=== PATIENT | female | born 1995 | race Hispanic/Latino ===

== ENCOUNTER 2019-07-24 23:49 | Emergency (ER) | payer OTHER ==
[2019-07-25 00:40] LABS: APPEARANCE,URINE Clear (CLEAR); BILIRUBIN,URINE Negative (NEGATIVE); COLOR,URINE Yellow (YELLOW); GLUCOSE, URINE (UA) Negative (NEGATIVE); KETONES,URINE Negative (NEGATIVE); LEUKOCYTE ESTERASE ,URINE Small (NEGATIVE); NITRATE,URINE Negative (NEGATIVE); OCCULT BLOOD,URINE Negative (NEGATIVE); PROTEIN,URINE Negative (NEGATIVE)
[2019-07-25 00:46] LABS: BASOPHILS % (AUTO) 0.2 % (0.0-5.0); EOSINOPHILS % (AUTO) 1.7 % (0.0-8.0); HEMATOCRIT 36.5 % (36-48); LYMPHOCYTES % (AUTO) 24.3 % (21.0-51.0); MEAN CORPUSCULAR HEMOGLOBIN 32.6 pg (27.0-33.0); MEAN CORPUSCULAR HGB CONC 35.8 g/dL (32.0-36.0); MEAN CORPUSCULAR VOLUME 91.2 fL (79-99); MONOCYTES % (AUTO) 9.8 % (3.0-13.0); PLATELET COUNT (AUTO) 260 K/uL (130-400); RED BLOOD CELL COUNT(AUTO) 4.01 MIL/uL (4.00-5.50); RED CELL DISTRIBUTION WIDTH 12.7 % (11.0-15.5); WHITE BLOOD COUNT (AUTO) 8.6 K/uL (4.8-10.8)
[2019-07-25 00:53] LABS: CREATININE 0.5 mg/dL (0.5-1.5); POTASSIUM 3.4 mmol/L (3.5-5.1)
[2019-07-25 00:55] LABS: BACTERIA,URINE Few /HPF (None Seen); MUCUS,URINE Moderate LPF (None Seen); RBC,URINE None Seen /HPF (0-1); SQUAMOUS EPITHELIAL CELL,UR Many /HPF (0-2)
== END 2019-07-25 02:11 | disposition home or self-care (01) ==
LOC: EDH 23:49
DX: O20.0 Threatened abortion (principal); O23.41 Unspecified infection of urinary tract in pregnancy, first trimester; Z3A.01 Less than 8 weeks gestation of pregnancy; Z90.49 Acquired absence of other specified parts of digestive tract
CPT/HCPCS: 36415; 76801; 80048; 81001; 84702; 85025; 86900; 86901; 87088

== ENCOUNTER 2022-12-02 13:25 | Emergency (ER) | payer MEDICAID ==
[~2022-12-02] VITALS: Ht 162.6 cm; Wt 97.5 kg
[2022-12-02 14:50] VITALS: BP 149/70
[2022-12-02] MEDS ORDERED: TETANUS/DIPHTHERIA TOXOID [ADULT] 0.5 ML VIAL IM ONE (15:00)
[2022-12-02] MEDS ORDERED: KETOROLAC 60 MG VIAL (30MG/ML) IM ONE (15:00)
[2022-12-02] MEDS ORDERED: IBUP-2070 PO (15:40)
== END 2022-12-02 15:52 | disposition home or self-care (01) ==
LOC: EDH 13:25
DX: S96.912A Strain of unspecified muscle and tendon at ankle and foot level, left foot, initial encounter (principal); Z90.49 Acquired absence of other specified parts of digestive tract
CPT/HCPCS: 99284; 90714; 73610; 73620; 96372; 90471; J1885

== ENCOUNTER 2023-03-04 09:40 | Emergency (ER) | payer MEDICAID ==
[~2023-03-04] VITALS: Ht 162.6 cm; Wt 81.6 kg
[~2023-03-04 09:40] MED LIST: IBUP-2070 PO
[2023-03-04] MEDS ORDERED: LIDOCAINE 5% TOPICAL PATCH TP ONE (10:00)
[2023-03-04] MEDS ORDERED: KETOROLAC 60 MG VIAL (30MG/ML) IM ONE (10:00)
[2023-03-04] MEDS ORDERED: HYDROCODONE/ACETAMINOPHEN 5/325 MG TAB PO ONE (10:00)
[2023-03-04 10:23] LABS: BASOPHILS % (AUTO) 0.4 % (0.0-5.0); EOSINOPHILS % (AUTO) 2.5 % (0.0-8.0); HEMATOCRIT 50.8 % (36-48); LYMPHOCYTES % (AUTO) 25.1 % (21.0-51.0); MEAN CORPUSCULAR HEMOGLOBIN 30.4 pg (27.0-33.0); MEAN CORPUSCULAR HGB CONC 32.5 g/dL (32.0-36.0); MEAN CORPUSCULAR VOLUME 93.6 fL (79-99); NEUTROPHILS % (AUTO) 64.6 % (40.0-77.0); PLATELET COUNT (AUTO) 288 K/uL (130-400); RED BLOOD CELL COUNT(AUTO) 5.43 MIL/uL (4.00-5.50); RED CELL DISTRIBUTION WIDTH 13.1 % (11.0-15.5); WHITE BLOOD COUNT (AUTO) 7.1 K/uL (4.8-10.8)
[2023-03-04 10:31] LABS: CREATININE 0.7 mg/dL (0.5-1.5)
[2023-03-04 10:36] LABS: ALBUMIN 3.9 g/dL (3.5-5.0); TOTAL PROTEIN, SERUM 7.5 g/dL (6.0-8.3)
[2023-03-04 11:31] LABS: APPEARANCE,URINE CLEAR (CLEAR); BILIRUBIN,URINE NEGATIVE (NEGATIVE); COLOR,URINE COLORLESS (YELLOW); GLUCOSE, URINE (UA) NEGATIVE (NEGATIVE); KETONES,URINE NEGATIVE (NEGATIVE); LEUKOCYTE ESTERASE ,URINE 250 Leu/uL (NEGATIVE); NITRATE,URINE NEGATIVE (NEGATIVE); OCCULT BLOOD,URINE NEGATIVE (NEGATIVE); PROTEIN,URINE NEGATIVE (NEGATIVE); UROBILINOGEN,URINE 0.2 mg/dL (0.2-1.0)
[2023-03-04 11:32] LABS: HCG,QUALITATIVE URINE NEGATIVE (NEGATIVE)
[2023-03-04 11:50] LABS: BACTERIA,URINE RARE /HPF (None Seen); MUCUS,URINE RARE LPF (None Seen); SQUAMOUS EPITHELIAL CELL,UR FEW /HPF (0-2); TRANSITIONAL EPI CELLS,URINE RARE /HPF (None Seen)
[2023-03-04 12:10] VITALS: BP 124/80
[2023-03-04] MEDS ORDERED: IBUP-2070 PO (12:16)
[2023-03-04] MEDS ORDERED: CYCL-309 PO (12:16)
[2023-03-04] MEDS ORDERED: NITROFURANTOIN MONOHYD/M-CRYST 100 MG CAPSULE PO ONE (12:30)
[2023-03-04] MEDS ORDERED: CYCLOBENZAPRINE HCL 10 MG TABLET PO ONE (12:30)
== END 2023-03-04 12:30 | disposition home or self-care (01) ==
LOC: EDH 09:40
DX: S39.012A Strain of muscle, fascia and tendon of lower back, initial encounter (principal); M54.9 Dorsalgia, unspecified; Z90.49 Acquired absence of other specified parts of digestive tract; X58.XXXA Exposure to other specified factors, initial encounter; Y93.89 Activity, other specified; Y92.89 Other specified places as the place of occurrence of the external cause; Y99.8 Other external cause status
CPT/HCPCS: 99284; 80053; 84703; 85025; 87088; 81001; 81025; 36415; 96372; J1885

== ENCOUNTER 2024-03-20 11:34 | Emergency (ER) | payer MEDICAID, OTHER ==
[~2024-03-20] VITALS: Ht 162.6 cm; Wt 85.7 kg
[~2024-03-20 11:34] MED LIST changes: +CYCL-309 PO
[2024-03-20] MEDS: ONDANSETRON 4MG INJ IVP ONE (12:16)
[2024-03-20] MEDS: LACTATED RINGERS 1000ML IV STA (12:16)
[2024-03-20] MEDS: ONDANSETRON 4MG INJ ONE (12:17)
[2024-03-20 12:23] LABS: BASOPHILS # (AUTO) 0.04 K/uL (0.00-0.20); BASOPHILS % (AUTO) 0.3 % (0.0-5.0); EOSINOPHILS # (AUTO) 0.26 K/uL (0.00-0.70); EOSINOPHILS % (AUTO) 1.9 % (0.0-8.0); HEMATOCRIT 40.6 % (36-48); IMMATURE GRANULOCYTE ABSOLUTE 0.04 K/uL (0-1); LYMPHOCYTES # (AUTO) 1.9 K/uL (1.0-4.8); LYMPHOCYTES % (AUTO) 13.6 % (21.0-51.0); MEAN CORPUSCULAR HEMOGLOBIN 32.7 pg (27.0-33.0); MEAN CORPUSCULAR HGB CONC 35.5 g/dL (32.0-36.0); MEAN CORPUSCULAR VOLUME 92.1 fL (79-99); MONOCYTES # (AUTO) 1.1 K/uL (0.1-1.0); MONOCYTES % (AUTO) 7.8 % (3.0-13.0); NEUTROPHILS # (AUTO) 10.4 K/uL (1.8-7.7); NEUTROPHILS % (AUTO) 76.1 % (40.0-77.0); PLATELET COUNT (AUTO) 290 K/uL (130-400); RED BLOOD CELL COUNT(AUTO) 4.41 MIL/uL (4.00-5.50); RED CELL DISTRIBUTION WIDTH 12.6 % (11.0-15.5); WHITE BLOOD COUNT (AUTO) 13.7 K/uL (4.8-10.8)
[2024-03-20 12:31] LABS: CREATININE 0.8 mg/dL (0.5-1.0); POTASSIUM 3.5 mmol/L (3.5-5.1)
[2024-03-20 12:36] LABS: ALBUMIN 3.5 g/dL (3.5-5.0); BILIRUBIN,TOTAL 1.3 mg/dL (0.2-1.0); TOTAL PROTEIN, SERUM 7.6 g/dL (6.0-8.3)
[2024-03-20 13:17] LABS: APPEARANCE,URINE TURBID (CLEAR); BILIRUBIN,URINE NEGATIVE (NEGATIVE); COLOR,URINE LIGHT-ORANGE (YELLOW); GLUCOSE, URINE (UA) NEGATIVE (NEGATIVE); KETONES,URINE NEGATIVE (NEGATIVE); LEUKOCYTE ESTERASE ,URINE 500 Leu/uL (NEGATIVE); NITRATE,URINE NEGATIVE (NEGATIVE); PROTEIN,URINE 50 mg/dL (NEGATIVE); UROBILINOGEN,URINE 3 mg/dL (0.2-1.0)
[2024-03-20 13:19] LABS: ADD UA MICROSCOPIC YES
[2024-03-20 13:25] LABS: MUCUS,URINE FEW LPF (None Seen); SQUAMOUS EPITHELIAL CELL,UR MANY /HPF (0-2); WBC,URINE 51-100 /HPF (0-1)
[2024-03-20] MEDS: MORPHINE 4 MG SYG IVP STA (13:38)
[2024-03-20] MEDS: CEFTRIAXONE 1G VIAL IVPB STA (14:21)
[2024-03-20] MEDS ORDERED: CEPH500B PO (14:42)
[2024-03-20 14:47] VITALS: BP 125/58; PULSE 71; RESP 20; O2SAT 98
== END 2024-03-20 15:14 | disposition home or self-care (01) ==
LOC: EDH 11:34
DX: O23.41 Unspecified infection of urinary tract in pregnancy, first trimester (principal); N39.0 Urinary tract infection, site not specified; R10.2 Pelvic and perineal pain; Z79.899 Other long term (current) drug therapy; Z90.49 Acquired absence of other specified parts of digestive tract; Z3A.01 Less than 8 weeks gestation of pregnancy
CPT/HCPCS: 99285; 96365; 76705; 76801; 96375; 96361; 80053; 84703; 84702; 83690; 85025; 87086; 81001; 36415; 93005; J7120; J0696; J2405; J2270; J7030

== ENCOUNTER 2024-11-18 09:53 | Emergency (ER) | payer MEDICAID ==
[~2024-11-18] VITALS: Ht 162.6 cm; Wt 83.9 kg
[~2024-11-18 09:53] MED LIST changes: +CEPH500B PO
[2024-11-18 10:16] LABS: BASOPHILS # (AUTO) 0.03 K/uL (0.00-0.20); BASOPHILS % (AUTO) 0.2 % (0.0-5.0); EOSINOPHILS # (AUTO) 0.14 K/uL (0.00-0.70); EOSINOPHILS % (AUTO) 1.1 % (0.0-8.0); HEMATOCRIT 42.8 % (36-48); IMMATURE GRANULOCYTE ABSOLUTE 0.04 K/uL (0-1); LYMPHOCYTES # (AUTO) 1.5 K/uL (1.0-4.8); LYMPHOCYTES % (AUTO) 12.2 % (21.0-51.0); MEAN CORPUSCULAR HEMOGLOBIN 31.6 pg (27.0-33.0); MEAN CORPUSCULAR HGB CONC 33.6 g/dL (32.0-36.0); MEAN CORPUSCULAR VOLUME 94.1 fL (79-99); MONOCYTES # (AUTO) 0.7 K/uL (0.1-1.0); MONOCYTES % (AUTO) 5.3 % (3.0-13.0); NEUTROPHILS % (AUTO) 80.9 % (40.0-77.0); PLATELET COUNT (AUTO) 307 K/uL (130-400); RED BLOOD CELL COUNT(AUTO) 4.55 MIL/uL (4.00-5.50); WHITE BLOOD COUNT (AUTO) 12.3 K/uL (4.8-10.8)
[2024-11-18 10:25] LABS: APPEARANCE,URINE CLOUDY (CLEAR); BILIRUBIN,URINE NEGATIVE (NEGATIVE); COLOR,URINE YELLOW (YELLOW); GLUCOSE, URINE (UA) NEGATIVE (NEGATIVE); KETONES,URINE 20 mg/dL (NEGATIVE); LEUKOCYTE ESTERASE ,URINE 500 Leu/uL (NEGATIVE); NITRATE,URINE NEGATIVE (NEGATIVE); OCCULT BLOOD,URINE NEGATIVE (NEGATIVE); PROTEIN,URINE 20 mg/dL (NEGATIVE); UROBILINOGEN,URINE 0.2 mg/dL (0.2-1.0)
[2024-11-18 10:27] LABS: HCG,QUALITATIVE URINE POSITIVE (NEGATIVE)
[2024-11-18 10:29] LABS: CREATININE 0.6 mg/dL (0.5-1.0); POTASSIUM 3.7 mmol/L (3.5-5.1)
[2024-11-18] MEDS: ondanSETRON 4MG INJ IVP ONE ×2 (10:31→14:02)
[2024-11-18] MEDS: FAMOTIDINE 20MG VIAL IV ONE (10:31)
[2024-11-18] MEDS: 0.9%NACL 1000ML 1,000 ML IV ONE (10:31)
[2024-11-18 10:32] LABS: ALBUMIN 4.2 g/dL (3.5-5.0); BILIRUBIN,DIRECT 0.1 mg/dL (0.0-0.3); BILIRUBIN,TOTAL 0.5 mg/dL (0.2-1.0); TOTAL PROTEIN, SERUM 7.7 g/dL (6.0-8.3)
[2024-11-18 10:38] LABS: ADD UA MICROSCOPIC YES
[2024-11-18 10:41] LABS: BACTERIA,URINE MOD /HPF (None Seen); MUCUS,URINE RARE LPF (None Seen); SQUAMOUS EPITHELIAL CELL,UR MANY /HPF (0-2)
--- NOTE | 2024-11-18 10:42 | ERN ---
General Chief Complaint: Abdominal Pain Stated Complaint: ABDOMINAL PAIN Time Seen by MD: 10:07 Time Seen by Midlevel: 10:07 Source: patient History of Present Illness Initial Comments Patient is a 29-year-old female with a past medical history of chronic alcohol abuse presenting to the emergency department with right upper quadrant/midepigastric abdominal pain that radiates to her back. The pain started three days ago but has progressively worsened. The patient reports being a chronic alcohol user and normally drinks every other day. She states her usual intake is liquor and beer. Today she reports multiple episodes of nausea and vomiting prior to arrival. Denies any fever, chills, or any other symptoms. Denies being but states she is unsure. Timing/Duration: unsure Allergies: Coded Allergies: No Known Drug Allergies (Verified Allergy, Unknown, 02/08/14) Home Meds Active Scripts Ondansetron (Ondansetron Odt) 4 Mg Tab.rapdis, 4 MG PO BID for 7 Days, #14 TAB Prov:ORTIZ OG 11/18/24 Cephalexin Monohydrate (Keflex) 500 Mg Cap, 500 MG PO QID for 7 Days, #28 CAP Prov:ORTIZ OG 11/18/24 Cephalexin Monohydrate (Keflex) 500 Mg Cap, 500 MG PO QID for 7 Days, #28 CAP Prov:LANCE DUNN NP 03/20/24 Cyclobenzaprine HCl (Cyclobenzaprine HCl) 10 Mg Tablet, 10 MG PO TID for BACK PAIN, #15 TAB Prov:SOLITARIO LONDON MD 03/04/23 Ibuprofen (Ibuprofen) 600 Mg Tablet, 600 MG PO Q6H PRN for PAIN, #30 TAB Prov:SOLITARIO LONDON MD 03/04/23 Ibuprofen (Ibuprofen) 600 Mg Tablet, 600 MG PO Q6H PRN for PAIN, #30 TAB 0 Refills Prov:FILIBERTO WEINBERG MD 12/02/22 Past Medical History Past Medical History: Other Medical History Other: HEART MURMUR Past Surgical History: Appendectomy Female( History) LMP: Nov 06, 2024 ROS Dictation CONSTITUTIONAL: Negative except for HPI HEAD/FACE: Negative except for HPI EENT: Negative except for HPI RESPIRATORY: Negative except for HPI GASTROINTESTINAL/ABDOMINAL: Negative except for HPI GENITOURINARY: Negative except for HPI MUSCULOSKELETAL: Negative except for HPI INTEGUMENTARY: Negative except for HPI NEUROLOGICAL/PSYCH: Negative except for HPI HEMATOLOGIC/LYMPHATIC: Negative except for HPI All Systems Negative, Except as noted above. 13 point review of systems assessed and all negative except for above. Physical Exam Physical Exam Dictation Vital Signs reviewed General Appearance: Alert, oriented x 3, no acute distress, well developed, nourished. Head and Face: non-traumatic. Eyes: PERRL, pink conjunctivas, eyelid no trauma, anterior chamber with arcus senilis. Ears: Pinnas intact and no signs of trauma or erythema ear canals clear and no discharge TM no erythema Nose: No discharge, no bleeding. Oropharynx: Mouth normal, tongue pink, pharynx clear,no erythema, tonsils no exudates, no abscesses noted, mucous membrane moist Neck: Supple, non-tender, no thyromegaly, no masses, no JVD, no bruits Breast:Deferred Chest:No tenderness, no crepitus, no paradoxical movement, no retractions Lungs:Clear, well-ventilated, symmetric, no rales, no wheezing, no rhonchi, no stridor, good breath sounds bilaterally Heart: Regular rate, regular rhythm, no murmur, no gallops Vascular: no peripheral edema, Abdomen: Soft, positive bowel sounds, nondistended, no guarding, Right upper quadrant/midepigastric abdominal tenderness, no rebound, no masses no hepatomegaly, no splenomegaly, no Alas's sign, no hernias. Rectal: Deferred Genital: Deferred Neurological: Normal speech, motor function intact, sensory function intact Musculoskeletal: Neck nontender, full range of motion, back nontender, full range of motion, Extremities: nontender, full range of motion Skin: Color pink, dry, no turgor, no rash, no lacerations, no abrasions, no contusions. Lymphatic: Deferred Results Laboratory and Microbiology Lab and Micro Result Laboratory Tests Test 11/18/24 10:08 11/18/24 10:09 11/18/24 12:22 White Blood Count 12.3 K/uL (4.8-10.8) H Red Blood Count 4.55 MIL/uL (4.00-5.50) Hemoglobin 14.4 g/dL (12.0-16.0) Hematocrit 42.8 % (36-48) Mean Corpuscular Volume 94.1 fL (79-99) Mean Corpuscular Hemoglobin 31.6 pg (27.0-33.0) Mean Corpuscular Hemoglobin Concent 33.6 g/dL (32.0-36.0) Red Cell Distribution Width 13.0 % (11.0-15.5) Platelet Count 307 K/uL (130-400) Mean Platelet Volume 9.9 fL (7.5-10.5) Immature Granulocyte % (Auto) 0.3 % (0-1) Neutrophils (%) (Auto) 80.9 % (40.0-77.0) H Lymphocytes (%) (Auto) 12.2 % (21.0-51.0) L Monocytes (%) (Auto) 5.3 % (3.0-13.0) Eosinophils (%) (Auto) 1.1 % (0.0-8.0) Basophils (%) (Auto) 0.2 % (0.0-5.0) Neutrophils # (Auto) 10.0 K/uL (1.8-7.7) H Lymphocytes # (Auto) 1.5 K/uL (1.0-4.8) Monocytes # (Auto) 0.7 K/uL (0.1-1.0) Eosinophils # (Auto) 0.14 K/uL (0.00-0.70) Basophils # (Auto) 0.03 K/uL (0.00-0.20) Absolute Immature Granulocyte (auto 0.04 K/uL (0-1) Nucleated Red Blood Cells 0.0 % (0.0-0.19) Sodium Level 139 mmol/L (136-145) Potassium Level 3.7 mmol/L (3.5-5.1) Chloride Level 103 mmol/L (101-111) Carbon Dioxide Level 28 mmol/L (21-32) Blood Urea Nitrogen 4 mg/dL (7-18) L Creatinine 0.6 mg/dL (0.5-1.0) Glomerular Filtration Rate Calc 125 mL/min (>90) Random Glucose 89 mg/dL (70-105) Total Calcium 9.6 mg/dL (8.5-10.1) Total Bilirubin 0.5 mg/dL (0.2-1.0) Direct Bilirubin 0.1 mg/dL (0.0-0.3) Aspartate Amino Transf (AST/SGOT) 17 U/L (10-37) Alanine Aminotransferase (ALT/SGPT) 26 U/L (12-78) Alkaline Phosphatase 71 U/L (50-136) Total Protein 7.7 g/dL (6.0-8.3) Albumin 4.2 g/dL (3.5-5.0) Lipase 24 U/L (16-77) Human Chorionic Gonadotropin, Quant 0 mIU/mL (0-5) 14153 mIU/mL (0-5) H Urine Color YELLOW (YELLOW) Urine Appearance CLOUDY (CLEAR) H Urine pH 7.0 (5.0-8.0) Urine Specific [place] 1.022 (1.001-1.031) Urine Protein 20 mg/dL (NEGATIVE) H Urine Glucose (UA) NEGATIVE mg/dL (NEGATIVE) Urine Ketones 20 mg/dL (NEGATIVE) H Urine Occult Blood NEGATIVE (NEGATIVE) Urine Nitrate NEGATIVE (NEGATIVE) Urine Bilirubin NEGATIVE mg/dL (NEGATIVE) Urine Urobilinogen 0.2 mg/dL (0.2-1.0) Urine Leukocyte Esterase 500 Tahira/uL (NEGATIVE) H Urine RBC 2-5 /HPF (0-1) H Urine WBC 6-10 /HPF (0-1) H Urine Squamous Epithelial Cells MANY /HPF (0-2) Urine Bacteria MOD /HPF (None Seen) Urine HCG, Qualitative POSITIVE (NEGATIVE) H Labs Reviewed?: Yes MDM MDM: Patient is a 29-year-old female with a past medical history of chronic alcohol abuse presenting to the emergency department with right upper quadrant/midepigastric abdominal pain that radiates to her back. The pain started three days ago but has progressively worsened. The patient reports being a chronic alcohol user and normally drinks every other day. She states her usual intake is liquor and beer. Today she reports multiple episodes of nausea and vomiting prior to arrival. Denies any fever, chills, or any other symptoms. Denies being but states she is unsure. Initial vital signs are stable. Patient was afebrile and nontoxic appearing. Her CBC shows a slight leukocytosis with a white blood cell count of 12.3. Hemoglobin is stable at 14.4. Platelet count is 307. Chemistries unremarkable. Her urinalysis shows evidence of infection. The patient was given 2 g of Rocephin IV. Her urine test was positive. An hCG quant and pelvic ultrasound was ordered. Her hCG quant resulted at 10:08 a.m. and it was 0. However, her pelvic ultrasound reveals an intrauterine gestation measuring approximately seven weeks and one days with positive heart tones of 129 beats per minute. HCG quant is inconsistent with pelvic ultrasound and positive urine test. A repeat hCG quant was performed which [place] [address]. The patient appears to be in [id number] amount of pain to the midepigastric and right upper quadrant region. Her liver function tests including her lipase are normal. Bilirubin is normal. Less likely obstruction however an ultrasound of the right upper quadrant was obtained which does not reveal any biliary obstruction or hydronephrosis/renal obstruct ion/pyelonephritis. Patient was given morphine in the emergency department along with Zofran for supportive management. She does report feeling better after her medications. The patient will need to follow up with an OBGYN outpatient. She was stable for discharge at this time. A copy of her pelvic ultrasound was given to her along with an hCG quant level. Strict return precau tions were given to the patient. Differential diagnosis: Acute cholecystitis, pancreatitis, , urinary tract infection, pyelonephritis There are no social concerns with this patient. Prescription drug management Prescriptions will include: Keflex, Zofran Medical management and examination interpretation discussions were had by me with other qualified healthcare professionals as indicated for the patient's care. ED Course Orders Procedure Category Date Status Time Vital Signs Per CPOE 11/18/24 Transmitted Routine 09:58 Saline Lock Iv CPOE 11/18/24 Transmitted 09:58 Cbc With Differential LAB 11/18/24 Complete 09:58 Lipase LAB 11/18/24 Complete 09:58 Urinalysis Profile LAB 11/18/24 Complete 09:58 Basic Metabolic Panel LAB 11/18/24 Complete 09:58 ,Urine Test LAB 11/18/24 Complete 09:58 Hepatic Function Panel LAB 11/18/24 Complete 10:10 0.9%Nacl 1000ml (Ns PHA 11/18/24 Complete 1000ml) 10:30 Ondansetron 4mg Inj PHA 11/18/24 Complete (Zofran 4mg Inj) 10:30 Famotidine 20mg Vial PHA 11/18/24 Complete (Pepcid 20mg Vial) 10:30 Culture Urine MANJINDER 11/18/24 In Process 10:38 Ceftriaxone 1g Vial PHA 11/18/24 Complete (Rocephine 1g Inj) 11:00 Hcg,Quantitative LAB 11/18/24 Complete 10:43 Us Ob <14 Weeks US 11/18/24 Resulted 10:43 Us Abdominal Ruq\Ltd US 11/18/24 Resulted 10:46 Morphine 2mg Syg PHA 11/18/24 Complete (Morphine 2mg Syg) 12:00 Hcg,Quantitative LAB 11/18/24 Complete 12:16 Ceftriaxone 1g Vial PHA 11/18/24 Complete (Rocephine 1g Inj) 12:30 Morphine 2mg Syg PHA 11/18/24 Complete (Morphine 2mg Syg) 13:30 Ondansetron 4mg Inj PHA 11/18/24 Complete (Zofran 4mg Inj) 13:30 Current Medications Medications (Trade) Dose Ordered Sig/Jesenia Route PRN Reason Start Time Stop Time Status Last Admin Dose Admin Ceftriaxone Sodium (ROCEphine 1G INJ) 1 gm ONCE ONCE IVPB 11/18/24 11:00 11/18/24 11:01 DC 11/18/24 10:50 Ceftriaxone Sodium (ROCEphine 1G INJ) 1 gm ONCE ONCE IVPB 11/18/24 12:30 11/18/24 12:31 DC 11/18/24 12:28 Famotidine (Pepcid 20mg Vial) 20 mg ONCE ONCE IV 11/18/24 10:30 11/18/24 10:31 DC 11/18/24 10:31 Morphine Sulfate (morPHINE 2MG SYG) 1 mg ONCE ONCE IVP 11/18/24 13:30 11/18/24 13:31 DC Morphine Sulfate (morPHINE 2MG SYG) 2 mg ONCE ONCE IVP 11/18/24 12:00 11/18/24 12:01 DC 11/18/24 12:22 Ondansetron HCl (zoFRAN 4MG INJ) 4 mg ONCE ONCE IVP 11/18/24 10:30 11/18/24 10:31 DC 11/18/24 10:31 Ondansetron HCl (zoFRAN 4MG INJ) 4 mg ONCE ONCE IVP 11/18/24 13:30 11/18/24 13:31 DC Sodium Chloride 1,000 ml @ 0 mls/hr ONCE ONCE IV 11/18/24 10:30 11/18/24 10:31 DC 11/18/24 10:31 Vital Signs Date Time Temp Pulse Resp B/P (MAP) Pulse Ox O2 Delivery O2 Flow Rate FiO2 11/18/24 11:50 97.7 88 16 140/89 98 Room Air* 0 21 11/18/24 10:34 88 16 140/87 99 Room Air* 0 21 11/18/24 09:55 97.7 79 20 126/85 98 0 [facility] [address] [place] [address] [id number] IMAGING REPORT Signed PATIENT: OMAR LARSON MR#: [id number] : 1995 SEX: F AGE: 29 LOCATION: [facility] ORDER 1044 STATUS: REG ER REPORT#: [id number] SERVICE 1043 REASON: positive test ORDERING PHYSICIAN: ORTIZ OG PROCEDURE: OB <14 - US OB <14 WEEKS US OB <14 WEEKS REASON: positive test COMPARISON: None TECHNIQUE: Transvaginal pelvic sonogram was performed. FINDINGS: There is an intrauterine gestational sac. There is a pole corresponding with a 7 week 1 day IUP, heart rate 129 BPM. Both ovaries appear normal. There are no adnexal masses. There is no free fluid in the cul-de-sac. IMPRESSION: 1. Intrauterine gestation 7 weeks 1 day by crown-rump length, heart rate 129 BPM. DICTATED BY: KASANDRA VITALE MD DATE: 11/18/24 1127 ELECTRONICALLY SIGNED BY: KASANDRA VITALE MD DATE: 11/18/24 1130 [facility] [address] [place] [address] [id number] IMAGING REPORT Signed PATIENT: OMAR LARSON MR#: [id number] : 1995 SEX: F AGE: 29 LOCATION: [facility] ORDER [id number] STATUS: REG ER REPORT#: [id number] SERVICE 1046 REASON: persistent RUQ abd pain with n/v ORDERING PHYSICIAN: ORTIZ OG PROCEDURE: ABDRUQLTD - US ABDOMINAL RUQ\LTD US ABDOMINAL RUQ\E\LTD HISTORY: persistent RUQ abd pain with n/v COMPARISON: None FINDINGS: There is normal sonographic appearance of the liver. There are no focal liver masses. The liver is not enlarged.There is a normal-appearing gallbladder. Common duct is normal at 6 mm.. Right kidney is normal with no evidence of mass, hydronephrosis or stone.The pancreas is obscured by overlying bowel gas. IMPRESSION: 1. Normal right upper quadrant sonogram although the pancreas was not well visualized. DICTATED BY: KASANDRA VITALE MD DATE: 11/18/241125 ELECTRONICALLY SIGNED BY: KASANDRA VITALE MD DATE: 11/18/241128 DX & DISP Disposition: Discharge Departure Impression: Primary Impression: First trimester Additional Impression: Urinary tract infection Condition: Stable Scripts Ondansetron (Ondansetron Odt) 4 Mg Tab.rapdis 4 MG PO BID for 7 Days, #14 TAB Prov: ORTIZ OG 11/18/24 Cephalexin Monohydrate (Keflex) 500 Mg Cap 500 MG PO QID for 7 Days, #28 CAP Prov: ORTIZ OG 11/18/24 Additional Instructions: Your blood work today is stable. Blood work shows no evidence of pancreatitis. Your urinalysis shows evidence of infection. You had a positive urine test. This was confirmed with a blood [place] [address]. We performed a pelvic ultrasound which reveals an intrauterine gestation of seven weeks and one day with a heart rate of 129 beats per minute. You will need to follow up with an OBGYN for further evaluation. Referrals: SELF,REFERRAL (PCP) SOHAIL ADHIKARI MD Time of Disposition: 13:12 I have reviewed the case, and I agree with, Diagnosis and Plan I PERFORMED THE SUBSTANTIVE PORTION OF THE VISIT. I HAVE REVIEWED AND PERSONALLY MADE AND APPROVE THE MANAGEMENT PLAN THAT IS DOCUMENTED IN THE NOTE BY MYSELF OR THE [facility]. I ACKNOWLEDGE FOR RESPONSIBILITY FOR THE PATIENT'S MANAGEMENT PLAN. ORTIZ OG Nov 18, 2024 10:42
[2024-11-18] MEDS: cefTRIAXone 1G VIAL IVPB ONE ×2 (10:50→12:28)
--- NOTE | 2024-11-18 11:29 | HMCIMG ---
US ABDOMINAL RUQ\E\LTD HISTORY: persistent RUQ abd pain with n/v COMPARISON: None FINDINGS: There is normal sonographic appearance of the liver. There are no focal liver masses. The liver is not enlarged.There is a normal-appearing gallbladder. Common duct is normal at 6 mm.. Right kidney is normal with no evidence of mass, hydronephrosis or stone.The pancreas is obscured by overlying bowel gas. IMPRESSION: 1. Normal right upper quadrant sonogram although the pancreas was not well visualized.
--- NOTE | 2024-11-18 11:30 | HMCIMG ---
US OB <14 WEEKS REASON: positive test COMPARISON: None TECHNIQUE: Transvaginal pelvic sonogram was performed. FINDINGS: There is an intrauterine gestational sac. There is a pole corresponding with a 7 week 1 day IUP, heart rate 129 BPM. Both ovaries appear normal. There are no adnexal masses. There is no free fluid in the cul-de-sac. IMPRESSION: 1. Intrauterine gestation 7 weeks 1 day by crown-rump length, heart rate 129 BPM.
[2024-11-18] MEDS: morPHINE 2 MG SYG IVP ONE ×2 (12:22→14:02)
[2024-11-18] MEDS ORDERED: CEPH500B PO (12:54)
[2024-11-18] MEDS ORDERED: ONDA-243 PO (13:17)
[2024-11-18 14:08] VITALS: BP 139/87; PULSE 79; RESP 18; TEMP 97.7; O2SAT 99
--- NOTE | 2024-11-18 14:08 | NUR ---
PULMO CONSULT: DR SEAMAN GAVE PATIENT REPORT TO JUDITH MURRY
== END 2024-11-18 14:10 | disposition home or self-care (01) ==
LOC: EDH 09:53
DX: O23.41 Unspecified infection of urinary tract in pregnancy, first trimester (principal); N39.0 Urinary tract infection, site not specified; O26.891 Other specified pregnancy related conditions, first trimester; R10.2 Pelvic and perineal pain; Z3A.01 Less than 8 weeks gestation of pregnancy; Z90.49 Acquired absence of other specified parts of digestive tract
CPT/HCPCS: 99285; 96365; 96375; 76705; 76801; 96366; 80076; 80048; 84702 ×2; 83690; 85025; 87086; 81001; 81025; 36415; 96376; J3490; J2270 ×2; J0696 ×2; J2405 ×2

== ENCOUNTER 2024-12-02 17:12 | Emergency (ER) | payer MEDICAID ==
[~2024-12-02] VITALS: Ht 162.6 cm; Wt 83.9 kg
[~2024-12-02 17:12] MED LIST changes: +ONDA-243 PO
--- NOTE | 2024-12-02 17:58 | ERN ---
General Chief Complaint: Abdominal Pain Stated Complaint: STOMACH AND SIDE PAIN Time Seen by MD: 17:13 Time Seen by Midlevel: 17:13 Source: patient History of Present Illness Initial Comments 29-year-old female who presents to the emergency department due to abdominal pain onset this morning. Patient reports she is currently 10 weeks but has not been seen by OB. He states she has been having nausea, vomiting but denies any fevers, diarrhea or further associated symptoms. Per patient she was seen here approximately three weeks ago due to similar symptoms. Denies significant past medical history. Allergies: Coded Allergies: No Known Drug Allergies (Verified Allergy, Unknown, 02/08/14) Home Meds Active Scripts Cefpodoxime Proxetil (Cefpodoxime Proxetil) 200 Mg Tablet, 1 TAB PO BID for 7 Days, #14 TAB 0 Refills Prov:GREGORY SANTANA 12/02/24 Ondansetron (Ondansetron Odt) 4 Mg Tab.rapdis, 4 MG PO BID for 7 Days, #14 TAB Prov:ORTIZ OG 11/18/24 Cephalexin Monohydrate (Keflex) 500 Mg Cap, 500 MG PO QID for 7 Days, #28 CAP Prov:ORTIZ OG 11/18/24 Cephalexin Monohydrate (Keflex) 500 Mg Cap, 500 MG PO QID for 7 Days, #28 CAP Prov:LANCE DUNN NP 03/20/24 Cyclobenzaprine HCl (Cyclobenzaprine HCl) 10 Mg Tablet, 10 MG PO TID for BACK PAIN, #15 TAB Prov:SOLITARIO LONDON MD 03/04/23 Ibuprofen (Ibuprofen) 600 Mg Tablet, 600 MG PO Q6H PRN for PAIN, #30 TAB Prov:SOLITARIO LONDON MD 03/04/23 Ibuprofen (Ibuprofen) 600 Mg Tablet, 600 MG PO Q6H PRN for PAIN, #30 TAB 0 Refills Prov:FILIBERTO WEINBERG MD 12/02/22 Past Medical History Past Medical History: Other Medical History Other: HEART MURMUR Past Surgical History: Appendectomy Female( History) : 5 Para: 3 Aborts: 1 ROS Dictation Constitutional: Negative for fever,chills, and weight loss Eyes: Negative for injury, pain,redness, and discharge ENT: Negative for injury,pain or swelling Cardiovascular: Negative for chest pain, palpitations, and edema Respiratory: Negative for shortness of breath, cough, and wheezing, Abdomen/GI: Positive for abdominal pain, nausea, vomiting. Negative for diarrhea and constipation Back: Negative for injury and pain : Negative for painful urination, bleeding or discharge MS/Extremity: Negative for injury and deformity Skin: Negative for rash, and discoloration Neuro: Negative for headache, weakness, numbness, tingling, and seizure Psych: Negative for suicide ideation, homicidal ideation, and hallucinations Physical Exam Physical Exam Dictation General: awake, alert, no acute distress Head/Face: Normocephalic, atraumatic Eyes: PERRL, EOMI, normal conjunctiva ENT: oral cavity clear, oral mucosa moist Neck: Supple, normal range of motion Cardiovascular: RRR, normal S1/S2 Respiratory: CTAB, no respiratory distress, no rales or wheezes Abdomen: Soft, right upper quadrant tenderness, non-distended, normal bowel sounds, no guarding or rebound. Skin: Warm, dry, normal turgor, no rash MS/Extremity: Pulses equal, no cyanosis, neurovascular intact, FROM Neuro: COAx4, GCS 15, no neurological deficits, normal gait Psych: Normal behavior, mood, and affect normal Results Laboratory and Microbiology Lab and Micro Result Laboratory Tests Test 12/02/24 18:29 12/02/24 19:50 White Blood Count 9.2 K/uL (4.8-10.8) Red Blood Count 4.02 MIL/uL (4.00-5.50) Hemoglobin 12.6 g/dL (12.0-16.0) Hematocrit 37.1 % (36-48) Mean Corpuscular Volume 92.3 fL (79-99) Mean Corpuscular Hemoglobin 31.3 pg (27.0-33.0) Mean Corpuscular Hemoglobin Concent 34.0 g/dL (32.0-36.0) Red Cell Distribution Width 12.3 % (11.0-15.5) Platelet Count 245 K/uL (130-400) Mean Platelet Volume 9.9 fL (7.5-10.5) Immature Granulocyte % (Auto) 0.3 % (0-1) Neutrophils (%) (Auto) 68.5 % (40.0-77.0) Lymphocytes (%) (Auto) 20.4 % (21.0-51.0) L Monocytes (%) (Auto) 8.0 % (3.0-13.0) Eosinophils (%) (Auto) 2.6 % (0.0-8.0) Basophils (%) (Auto) 0.2 % (0.0-5.0) Neutrophils # (Auto) 6.3 K/uL (1.8-7.7) Lymphocytes # (Auto) 1.9 K/uL (1.0-4.8) Monocytes # (Auto) 0.7 K/uL (0.1-1.0) Eosinophils # (Auto) 0.24 K/uL (0.00-0.70) Basophils # (Auto) 0.02 K/uL (0.00-0.20) Absolute Immature Granulocyte (auto 0.03 K/uL (0-1) Nucleated Red Blood Cells 0.0 % (0.0-0.19) Sodium Level 136 mmol/L (136-145) Potassium Level 3.7 mmol/L (3.5-5.1) Chloride Level 100 mmol/L (101-111) L Carbon Dioxide Level 32 mmol/L (21-32) Blood Urea Nitrogen 4 mg/dL (7-18) L Creatinine 0.6 mg/dL (0.5-1.0) Glomerular Filtration Rate Calc 125 mL/min (>90) Random Glucose 91 mg/dL (70-105) Total Calcium 9.1 mg/dL (8.5-10.1) Total Bilirubin 0.3 mg/dL (0.2-1.0) Direct Bilirubin 0.1 mg/dL (0.0-0.3) Aspartate Amino Transf (AST/SGOT) 12 U/L (10-37) Alanine Aminotransferase (ALT/SGPT) 25 U/L (12-78) Alkaline Phosphatase 72 U/L (50-136) Total Protein 6.8 g/dL (6.0-8.3) Albumin 3.3 g/dL (3.5-5.0) L Lipase 27 U/L (16-77) Human Chorionic Gonadotropin, Quant 97938 mIU/mL (0-5) H Urine Color LIGHT-YELLOW (YELLOW) Urine Appearance CLOUDY (CLEAR) H Urine pH 7.0 (5.0-8.0) Urine Specific [place] 1.018 (1.001-1.031) Urine Protein NEGATIVE mg/dL (NEGATIVE) Urine Glucose (UA) NEGATIVE mg/dL (NEGATIVE) Urine Ketones NEGATIVE mg/dL (NEGATIVE) Urine Occult Blood NEGATIVE (NEGATIVE) Urine Nitrate NEGATIVE (NEGATIVE) Urine Bilirubin NEGATIVE mg/dL (NEGATIVE) Urine Urobilinogen 0.2 mg/dL (0.2-1.0) Urine Leukocyte Esterase 500 Tahira/uL (NEGATIVE) H Urine RBC 2-5 /HPF (0-1) H Urine WBC 51-100 /HPF (0-1) H Urine Squamous Epithelial Cells FEW /HPF (0-2) Urine Other Crystals (Auto) 2 /HPF (None Seen) Urine Bacteria RARE /HPF (None Seen) Urine Yeast RARE /HPF (None Seen) Urine Opiates Screen NEGATIVE (NEGATIVE) Urine Barbiturates Screen NEGATIVE (NEGATIVE) Urine Phencyclidine Screen NEGATIVE (NEGATIVE) Urine Amphetamines Screen NEGATIVE (NEGATIVE) Urine Benzodiazepines Screen NEGATIVE (NEGATIVE) Urine Cocaine Screen POSITIVE (NEGATIVE) H Urine Marijuana (THC) Screen POSITIVE (NEGATIVE) H Labs Reviewed?: Yes EKG/XRAY/US/CT/MRI Ultrasound Comment REASON: Abdominal pain ORDERING PHYSICIAN: GREGORY SANTANA PROCEDURE: OB <14 - US OB <14 WEEKS ULTRASOUND OF THE PELVIS ULTRASOUND ABD VASCULAR LIMITED INDICATION: Pelvic pain COMPARISONS: None TECHNIQUE: Transabdominal real-time sonographic images were acquired earlier, and subsequently made available for review. FINDINGS: The uterus measures 10.7 x 7.2 x 8.0 cm. The uterus is normal in echotexture and contour. Single live intrauterine gestation corresponds to sonographic gestational age of 8 weeks 0 days based on crown-rump length of 1.6 cm. No abnormal subchorionic hypoechoic area demonstrated. heart rate = 153 BPM. The right ovary measures 1.9 x 1.6 x 2.1 cm. The right ovary is normal in size, shape and echogenicity. No right adnexal masses demonstrated. Color Doppler flow is normal throughout the right ovary. Spectral Doppler analysis demonstrates a normal waveform pattern. The left ovary measures 2.7 x 1.7 x 2.1 cm. The left ovary is normal in size, shape and echogenicity. No left adnexal masses demonstrated. Color Doppler flow is normal throughout the left ovary. Spectral Doppler analysis demonstrates a normal waveform pattern. No free pelvic fluid demonstrated. IMPRESSION: 1. Single live intrauterine gestation corresponding to sonographic gestational age of 8 weeks 0 days based on crown-rump length, and with heart rate = 153 BPM. 2. No evidence for subchorionic hemorrhage. 3. LAMBERT = 07/14/2025 DICTATED BY: RASHAWN PLUNKETT MD DATE: 12/02/242048 REASON: RUQ abdominal pain ORDERING PHYSICIAN: GREGORY SANTANA PROCEDURE: [id number] - US ABDOMINAL RUQ\LTD ULTRASOUND ABDOMEN LIMITED INDICATION: Right upper abdominal pain COMPARISON: None FINDINGS: The liver is normal in size and normal in echogenicity; no focal lesion demonstrated. The common bile duct diameter measures 2.0 mm. No evidence for calculi, sludge or pericholecystic fluid. No sonographic Alas's sign elicited by the ultrasound welding machine operator submerged arc. Wall thickness measures 2.0 mm. Visible portions of the pancreas appear normal. The right kidney measures 11.0 x 3.8 x 4.4 cm,and is normal in echogenicity, without evidence for hydronephrosis.No shadowing stones demonstrated. No free fluid demonstrated. IMPRESSION: No evidence for any acute right upper abdominal abnormality. DICTATED BY: RASHAWN PLUNKETT MD DATE: 12/02/241935 [facility] MDM: Differential diagnosis: UTI, cholelithiasis, cholecystitis, drug use Rationale: 29-year-old female who presents to the emergency department due to abdominal pain onset this morning. Patient reports she is currently 10 weeks but has not been seen by OB. He states she has been having nausea, vomiting but denies any fevers, diarrhea or further associated symptoms. Per patient she was seen here approximately three weeks ago due to similar symptoms. Denies significant past medical history. Labs obtained with no indication of elevated WBC, hepatic function [place] [address]. UA indicates a urinary tract infection, drug screen positive for cocaine and marijuana. Right upper quadrant ultrasound obtained indicating no acute abnormalities, no signs of stones or cholecystitis. Although patient's abdominal pain is right upper quadrant due to patient's positive drug use OB ultrasound obtained. Single intrauterine gestation galina suring eight weeks with a heart tone of 153. Per patient she has been seen three weeks ago and told she was 7 weeks gestation. Patient was educated on findings and diagnosis. Antibiotics prescribed for outpatient treatment. Advised to follow up with OBGYN. Return to the emergency department if any worsening symptoms. Patient verbalized understanding. Patient stable for discharge. There are no social concerns with this patient. I independently interpreted the test that were performed, results were reviewed by me and considered findings on radiology if ordered. Medical management and examination interpretation discussions were had by me with other qualified healthcare professionals as indicated for the patient's care. ED Course Orders Procedure Category Date Status Time Cbc With Differential LAB 12/02/24 Complete 17:27 Basic Metabolic Panel LAB 12/02/24 Complete 17:27 Hepatic Function Panel LAB 12/02/24 Complete 17:27 Lipase LAB 12/02/24 Complete 17:27 Urinalysis LAB 12/02/24 Complete W/Microscopic 17:27 Hcg,Quantitative LAB 12/02/24 Complete 17:27 Us Abdominal Ruq\Ltd US 12/02/24 Resulted 17:27 Acetaminophen 325 Tab PHA 12/02/24 Complete (Tylenol 325mg Tab 18:00 Drug Screen Urine LAB 12/02/24 Complete 17:27 Us Ob <14 Weeks US 12/02/24 Resulted 19:49 Culture Urine MANJINDER 12/02/24 In Process 20:07 Current Medications Medications (Trade) Dose Ordered Sig/Jesenia Route PRN Reason Start Time Stop Time Status Last Admin Dose Admin Acetaminophen (TYLenol 325MG TAB) 650 mg ONCE ONCE PO 12/02/24 18:00 12/02/24 18:01 DC 12/02/24 19:49 Vital Signs Date Time Temp Pulse Resp B/P (MAP) Pulse Ox O2 Delivery O2 Flow Rate FiO2 12/02/24 19:37 98.4 96 18 129/88 99 Room Air* 0 21 12/02/24 17:19 98.4 96 16 129/88 99 Room Air 0 DX & DISP Disposition: Discharge Departure Impression: Primary Impression: Urinary tract infection Additional Impressions: Cocaine use, Marijuana use, Abdominal pain during Condition: Stable Scripts Cefpodoxime Proxetil (Cefpodoxime Proxetil) 200 Mg Tablet 1 TAB PO BID for 7 Days, #14 TAB 0 Refills Prov: GREGORY SANTANA 12/02/24 Additional Instructions: Discharge home. Rest. Follow up with primary care in 24 hours. Return to the ER for any acute changes or worsening symptoms. If any medications were prescribed take as directed. Okay to continue home medications unless otherwise discussed during your visit in the emergency room today. Patient was also advised to follow-up with primary care physician in 1 to 2 days for continued monitoring. Referrals: WALLY CONNOR (PCP) I performed the substantive portion of the visit. I have reviewed and pe rsonally made and approve the management plan that is documented in the notes by myself or the MONTRELL. I acknowledge full responsibility for the patient's management plan. GREGORY SANTANA Dec 02, 2024 17:58
[2024-12-02 18:43] LABS: BASOPHILS # (AUTO) 0.02 K/uL (0.00-0.20); BASOPHILS % (AUTO) 0.2 % (0.0-5.0); EOSINOPHILS # (AUTO) 0.24 K/uL (0.00-0.70); EOSINOPHILS % (AUTO) 2.6 % (0.0-8.0); HEMATOCRIT 37.1 % (36-48); IMMATURE GRANULOCYTE ABSOLUTE 0.03 K/uL (0-1); LYMPHOCYTES # (AUTO) 1.9 K/uL (1.0-4.8); LYMPHOCYTES % (AUTO) 20.4 % (21.0-51.0); MEAN CORPUSCULAR HEMOGLOBIN 31.3 pg (27.0-33.0); MEAN CORPUSCULAR VOLUME 92.3 fL (79-99); MONOCYTES # (AUTO) 0.7 K/uL (0.1-1.0); NEUTROPHILS # (AUTO) 6.3 K/uL (1.8-7.7); NEUTROPHILS % (AUTO) 68.5 % (40.0-77.0); PLATELET COUNT (AUTO) 245 K/uL (130-400); RED BLOOD CELL COUNT(AUTO) 4.02 MIL/uL (4.00-5.50); RED CELL DISTRIBUTION WIDTH 12.3 % (11.0-15.5); WHITE BLOOD COUNT (AUTO) 9.2 K/uL (4.8-10.8)
[2024-12-02 18:51] LABS: CREATININE 0.6 mg/dL (0.5-1.0); POTASSIUM 3.7 mmol/L (3.5-5.1)
[2024-12-02 19:16] LABS: ALBUMIN 3.3 g/dL (3.5-5.0); BILIRUBIN,DIRECT 0.1 mg/dL (0.0-0.3); BILIRUBIN,TOTAL 0.3 mg/dL (0.2-1.0); TOTAL PROTEIN, SERUM 6.8 g/dL (6.0-8.3)
[2024-12-02 19:37] VITALS: BP 129/88; PULSE 96; RESP 18; TEMP 98.4; O2SAT 99
--- NOTE | 2024-12-02 19:41 | HMCIMG ---
ULTRASOUND ABDOMEN LIMITED INDICATION: Right upper abdominal pain COMPARISON: None FINDINGS: The liver is normal in size and normal in echogenicity; no focal lesion demonstrated. The common bile duct diameter measures 2.0 mm. No evidence for calculi, sludge or pericholecystic fluid. No sonographic Alas's sign elicited by the ultrasound eyelet machine operator. Wall thickness measures 2.0 mm. Visible portions of the pancreas appear normal. The right kidney measures 11.0 x 3.8 x 4.4 cm,and is normal in echogenicity, without evidence for hydronephrosis.No shadowing stones demonstrated. No free fluid demonstrated. IMPRESSION: No evidence for any acute right upper abdominal abnormality.
[2024-12-02] MEDS: acetaMINOPHEN 325 MG TAB PO ONE (19:49)
[2024-12-02 20:03] LABS: APPEARANCE,URINE CLOUDY (CLEAR); BILIRUBIN,URINE NEGATIVE (NEGATIVE); COLOR,URINE LIGHT-YELLOW (YELLOW); GLUCOSE, URINE (UA) NEGATIVE (NEGATIVE); KETONES,URINE NEGATIVE (NEGATIVE); LEUKOCYTE ESTERASE ,URINE 500 Leu/uL (NEGATIVE); NITRATE,URINE NEGATIVE (NEGATIVE); OCCULT BLOOD,URINE NEGATIVE (NEGATIVE); PROTEIN,URINE NEGATIVE (NEGATIVE); UROBILINOGEN,URINE 0.2 mg/dL (0.2-1.0)
[2024-12-02 20:07] LABS: BACTERIA,URINE RARE /HPF (None Seen); MUCUS,URINE RARE LPF (None Seen); SQUAMOUS EPITHELIAL CELL,UR FEW /HPF (0-2); UNCLASSIFIED CRYSTAL 2 /HPF (None Seen); WBC,URINE 51-100 /HPF (0-1); YEAST,URINE BUDDING RARE /HPF (None Seen)
[2024-12-02 20:10] LABS: AMPHET/METH SCREEN,URINE NEGATIVE (NEGATIVE); BARBITURATE SCREEN, URINE NEGATIVE (NEGATIVE); BENZODIAZEPINES SCREEN,URINE NEGATIVE (NEGATIVE); CANNABINOID SCREEN,URINE POSITIVE (NEGATIVE); COCAINE SCREEN,URINE POSITIVE (NEGATIVE); OPIATE SCREEN,URINE NEGATIVE (NEGATIVE); PHENCYCLIDINE SCREEN,URINE NEGATIVE (NEGATIVE)
--- NOTE | 2024-12-02 20:52 | HMCIMG ---
ULTRASOUND OF THE PELVIS ULTRASOUND ABD VASCULAR LIMITED INDICATION: Pelvic pain COMPARISONS: None TECHNIQUE: Transabdominal real-time sonographic images were acquired earlier, and subsequently made available for review. FINDINGS: The uterus measures 10.7 x 7.2 x 8.0 cm. The uterus is normal in echotexture and contour. Single live intrauterine gestation corresponds to sonographic gestational age of 8 weeks 0 days based on crown-rump length of 1.6 cm. No abnormal subchorionic hypoechoic area demonstrated. heart rate = 153 BPM. The right ovary measures 1.9 x 1.6 x 2.1 cm. The right ovary is normal in size, shape and echogenicity. No right adnexal masses demonstrated. Color Doppler flow is normal throughout the right ovary. Spectral Doppler analysis demonstrates a normal waveform pattern. The left ovary measures 2.7 x 1.7 x 2.1 cm. The left ovary is normal in size, shape and echogenicity. No left adnexal masses demonstrated. Color Doppler flow is normal throughout the left ovary. Spectral Doppler analysis demonstrates a normal waveform pattern. No free pelvic fluid demonstrated. IMPRESSION: 1. Single live intrauterine gestation corresponding to sonographic gestational age of 8 weeks 0 days based on crown-rump length, and with heart rate = 153 BPM. 2. No evidence for subchorionic hemorrhage. 3. LAMBERT = 07/14/2025
[2024-12-02] MEDS ORDERED: CEFP200T14 PO (21:06)
== END 2024-12-02 21:21 | disposition home or self-care (01) ==
LOC: EDH 17:12 → EEVIPCON 17:12 → EDH 21:21
DX: O23.31 Infections of other parts of urinary tract in pregnancy, first trimester (principal); N39.0 Urinary tract infection, site not specified; O99.321 Drug use complicating pregnancy, first trimester; F14.90 Cocaine use, unspecified, uncomplicated; O26.891 Other specified pregnancy related conditions, first trimester; R10.2 Pelvic and perineal pain; Z90.49 Acquired absence of other specified parts of digestive tract; Z3A.10 10 weeks gestation of pregnancy
CPT/HCPCS: 36415; 76705; 76801; 80048; 80076; 80305; 81001; 83690; 84702; 85025; 87086; 99284

== ENCOUNTER 2025-02-16 11:10 | Emergency (ER) | payer MEDICAID ==
[~2025-02-16] VITALS: Ht 162.6 cm; Wt 81.6 kg
[~2025-02-16 11:10] MED LIST changes: +CEFP200T14 PO
[2025-02-16] MEDS: cefTRIAXone 1G VIAL IVPB STA (11:43)
[2025-02-16] MEDS: 0.9%NACL 1000ML 2,448 ML IV ONE (11:43)
[2025-02-16] MEDS: acetaMINOPHEN 325 MG TAB PO STA (11:44)
[2025-02-16 11:47] LABS: BASOPHILS # (AUTO) 0.02 K/uL (0.00-0.20); BASOPHILS % (AUTO) 0.2 % (0.0-5.0); HEMATOCRIT 35.9 % (36-48); IMMATURE GRANULOCYTE ABSOLUTE 0.08 K/uL (0-1); LYMPHOCYTES # (AUTO) 1.2 K/uL (1.0-4.8); LYMPHOCYTES % (AUTO) 10.9 % (21.0-51.0); MEAN CORPUSCULAR HEMOGLOBIN 29.5 pg (27.0-33.0); MEAN CORPUSCULAR HGB CONC 31.5 g/dL (32.0-36.0); MEAN CORPUSCULAR VOLUME 93.7 fL (79-99); MONOCYTES # (AUTO) 1.2 K/uL (0.1-1.0); MONOCYTES % (AUTO) 11.1 % (3.0-13.0); NEUTROPHILS # (AUTO) 8.3 K/uL (1.8-7.7); NEUTROPHILS % (AUTO) 77.1 % (40.0-77.0); PLATELET COUNT (AUTO) 271 K/uL (130-400); RED BLOOD CELL COUNT(AUTO) 3.83 MIL/uL (4.00-5.50); RED CELL DISTRIBUTION WIDTH 15.5 % (11.0-15.5); WHITE BLOOD COUNT (AUTO) 10.8 K/uL (4.8-10.8)
[2025-02-16 11:53] LABS: APPEARANCE,URINE CLEAR (CLEAR); BILIRUBIN,URINE NEGATIVE (NEGATIVE); COLOR,URINE LIGHT-YELLOW (YELLOW); GLUCOSE, URINE (UA) NEGATIVE (NEGATIVE); KETONES,URINE NEGATIVE (NEGATIVE); LEUKOCYTE ESTERASE ,URINE 75 Leu/uL (NEGATIVE); NITRATE,URINE NEGATIVE (NEGATIVE); OCCULT BLOOD,URINE SMALL (NEGATIVE); PH,URINE 7.5 (5.0-8.0); PROTEIN,URINE 20 mg/dL (NEGATIVE); UROBILINOGEN,URINE 0.2 mg/dL (0.2-1.0)
[2025-02-16 11:56] LABS: ADD UA MICROSCOPIC YES
[2025-02-16 11:59] LABS: CREATININE 0.7 mg/dL (0.5-1.0); POTASSIUM 3.2 mmol/L (3.5-5.1)
[2025-02-16 12:04] LABS: BACTERIA,URINE RARE /HPF (None Seen); MUCUS,URINE RARE LPF (None Seen); SQUAMOUS EPITHELIAL CELL,UR MOD /HPF (0-2); WBC,URINE 26-50 /HPF (0-1)
[2025-02-16] MEDS: ondanSETRON 4MG INJ IVP STA (12:12)
[2025-02-16] MEDS: morPHINE 2 MG SYG IVP STA (12:12)
--- NOTE | 2025-02-16 14:15 | HMCIMG ---
CT ABDOMEN/PELVIS W/O CONTRAST HISTORY: Left flank pain COMPARISON: 09/23/2013 TECHNIQUE: Multiple sequential axial images of the abdomen and pelvis were obtained from the dome of the diaphragm through symphysis pubis. Patient was not given contrast through intravenous route. Oral contrast was not given. FINDINGS: No pleural effusion is seen bilaterally. There is no evidence of parenchymal disease or pulmonary nodule of the visualized lower lungs. Degenerative changes of the thoracolumbar spine are present. The heart is not enlarged. Liver measures 17 cm. The liver, spleen, adrenal glands and pancreas are unremarkable. There is no evidence of hydronephrosis bilaterally. No evidence of renal stone is seen. Fecal material is seen in the colon. There are normal size retroperitoneal and mesenteric lymph nodes. No ascites is seen. No CT evidence of acute appendicitis is seen. Pelvic sidewalls are symmetric bilaterally. Bladder is poorly distended. Adjacent fat stranding is seen. If there is clinical suspicion for cystitis, urinalysis correlation with helpful. IMPRESSION: 1. Bladder is poorly distended. Adjacent fat stranding is seen. If there is clinical suspicion for cystitis, urinalysis correlation with helpful. CT was performed with one or more following dose reduction techniques: automated exposure control, adjustment of the mA and kv according to patient's size, or use of a iterative reconstruction technique.
[2025-02-16] MEDS: ketOROlac 15MG/ML VIAL (15MG/ML) IV STA (14:22)
--- NOTE | 2025-02-16 14:32 | ERN ---
ED Note History of Present Illness Stated Complaint: LEFT SIDE BODY PAIN,VOMITING,FEVERS Chief Complaint: Flank Pain Time Seen by MD: 11:11 Time Seen by Midlevel: 11:15 Dictation: 29-year-old female with no past medical history coming in complaining of left flank pain and fever and vomiting for two days. Patient denies any hematuria or dysuria. LMP 01/04/2025. Allergies: Coded Allergies: No Known Drug Allergies (Verified Allergy, Unknown, 02/08/14) Home Meds Active Scripts Cefpodoxime Proxetil (Cefpodoxime Proxetil) 200 Mg Tablet, 1 TAB PO BID for 7 Days, #14 TAB 0 Refills Prov:GREGORY SANTANA 12/02/24 Ondansetron (Ondansetron Odt) 4 Mg Tab.rapdis, 4 MG PO BID for 7 Days, #14 TAB Prov:ORTIZ OG PA 11/18/24 Cephalexin Monohydrate (Keflex) 500 Mg Cap, 500 MG PO QID for 7 Days, #28 CAP Prov:ORTIZ OG 11/18/24 Cephalexin Monohydrate (Keflex) 500 Mg Cap, 500 MG PO QID for 7 Days, #28 CAP Prov:LANCE DUNN NP 03/20/24 Cyclobenzaprine HCl (Cyclobenzaprine HCl) 10 Mg Tablet, 10 MG PO TID for BACK PAIN, #15 TAB Prov:SOLITARIO LONDON MD 03/04/23 Ibuprofen (Ibuprofen) 600 Mg Tablet, 600 MG PO Q6H PRN for PAIN, #30 TAB Prov:SOLITARIO LONDON MD 03/04/23 Ibuprofen (Ibuprofen) 600 Mg Tablet, 600 MG PO Q6H PRN for PAIN, #30 TAB 0 Refills Prov:FILIBERTO WEINBERG MD 12/02/22 Past Medical History Past Medical History: No Pertinent History Additional Past Medical Hx: HEART MURMUR Surgical History: Other LMP: Jan 04, 2025 : 5 Para: 3 Aborts: 1 Review of System Dictation Constitutional: Positive for fever, Eyes: Negative for injury, pain,redness, and discharge ENT: Negative for injury,pain or swelling Cardiovascular: Negative for chest pain, palpitations, and edema Respiratory: Negative for shortness of breath, cough, and wheezing, Abdomen/GI: Negative for abdominal pain, nausea, vomiting, diarrhea, and constipation complaining of left flank pain Back: Negative for injury and pain : Negative for injury, bleeding and discharge MS/Extremity: Negative for injury and deformity Skin: Negative for rash, and discoloration Neuro: Negative for headache, weakness, numbness, tingling, and seizure Psych: Negative for suicide ideation, homicidal ideation, and hallucinations Review of Systems: was completed Initial Vital Sign VS Vital Signs Date Time Temp Pulse Resp B/P (MAP) Pulse Ox O2 Delivery O2 Flow Rate FiO2 02/16/25 11:16 100.8 115 20 126/85 100 Room Air 02/16/25 11:48 0 21 Physical Exam Dictation General: awake, alert, NAD Head/Face: Normocephalic, atraumatic Eyes: PERRL, EOMI, vision at baseline ENT: oral cavity clear, TMs clear, no signs of infection Neck: Trachea midline, supple, no nuchal rigidity Cardiovascular: RRR, normal S1/S2, No MRGs, no JVD Respiratory: CTAB, no respiratory distress, No rales or wheezes Abdomen: Soft, non-tender, non-distended, normal bowel sounds, no guarding or rebound. Skin: Warm, dry, normal turgor, no rash MS/Extremity: Pulses equal, no cyanosis, neurovascular intact, FROM Neuro: COAx4, GCS 15, strength 5/5, CN 2-12 intact, normal cerebellar exam, normal gait, Psych: Normal behavior, mood, and affect normal Results (Laboratory/Radiology) Laboratory/Radiology Laboratory Tests Test 02/16/25 11:30 02/16/25 11:39 Urine Color LIGHT-YELLOW (YELLOW) Urine Appearance CLEAR (CLEAR) Urine pH 7.5 (5.0-8.0) Urine Specific [place] 1.014 (1.001-1.031) Urine Protein 20 mg/dL (NEGATIVE) H Urine Glucose (UA) NEGATIVE mg/dL (NEGATIVE) Urine Ketones NEGATIVE mg/dL (NEGATIVE) Urine Occult Blood SMALL (NEGATIVE) H Urine Nitrate NEGATIVE (NEGATIVE) Urine Bilirubin NEGATIVE mg/dL (NEGATIVE) Urine Urobilinogen 0.2 mg/dL (0.2-1.0) Urine Leukocyte Esterase 75 Tahira/uL (NEGATIVE) H Urine RBC 2-5 /HPF (0-1) H Urine WBC 26-50 /HPF (0-1) H Urine Squamous Epithelial Cells MOD /HPF (0-2) Urine Bacteria RARE /HPF (None Seen) White Blood Count 10.8 K/uL (4.8-10.8) Red Blood Count 3.83 MIL/uL (4.00-5.50) L Hemoglobin 11.3 g/dL (12.0-16.0) L Hematocrit 35.9 % (36-48) L Mean Corpuscular Volume 93.7 fL (79-99) Mean Corpuscular Hemoglobin 29.5 pg (27.0-33.0) Mean Corpuscular Hemoglobin Concent 31.5 g/dL (32.0-36.0) L Red Cell Distribution Width 15.5 % (11.0-15.5) Platelet Count 271 K/uL (130-400) Mean Platelet Volume 9.0 fL (7.5-10.5) Immature Granulocyte % (Auto) 0.7 % (0-1) Neutrophils (%) (Auto) 77.1 % (40.0-77.0) H Lymphocytes (%) (Auto) 10.9 % (21.0-51.0) L Monocytes (%) (Auto) 11.1 % (3.0-13.0) Eosinophils (%) (Auto) 0.0 % (0.0-8.0) Basophils (%) (Auto) 0.2 % (0.0-5.0) Neutrophils # (Auto) 8.3 K/uL (1.8-7.7) H Lymphocytes # (Auto) 1.2 K/uL (1.0-4.8) Monocytes # (Auto) 1.2 K/uL (0.1-1.0) H Eosinophils # (Auto) 0.00 K/uL (0.00-0.70) Basophils # (Auto) 0.02 K/uL (0.00-0.20) Absolute Immature Granulocyte (auto 0.08 K/uL (0-1) Nucleated Red Blood Cells 0.0 % (0.0-0.19) Sodium Level 140 mmol/L (136-145) Potassium Level 3.2 mmol/L (3.5-5.1) L Chloride Level 103 mmol/L (101-111) Carbon Dioxide Level 30 mmol/L (21-32) Blood Urea Nitrogen 6 mg/dL (7-18) L Creatinine 0.7 mg/dL (0.5-1.0) Glomerular Filtration Rate Calc 120 mL/min (>90) Random Glucose 100 mg/dL (70-105) Lactic Acid Level 1.0 mmol/L (0.8-2.5) Total Calcium 8.8 mg/dL (8.5-10.1) Total Creatine Kinase 60 U/L (21-232) # Troponin I High Sensitivity < 4 ng/L (4-50) L Human Chorionic Gonadotropin, Quant 0 mIU/mL (0-5) Labs Reviewed?: Yes CT Scan Comment: [facility] [address] [place] [address] IMAGING REPORT Signed PATIENT: OMAR LARSON MR#: [id number] : 1995 SEX: F AGE: 29 LOCATION: [facility] ORDER [id number] STATUS: REG REPORT#: [id number] SERVICE [id number] REASON: left flank pain ORDERING PHYSICIAN: LANCE DUNN NP PROCEDURE: ABD PEL WO - CT ABDOMEN/PELVIS W/O CONTRAST CT ABDOMEN/PELVIS W/O CONTRAST HISTORY: Left flank pain COMPARISON: 09/23/2013 TECHNIQUE: Multiple sequential axial images of the abdomen and pelvis were obtained from the dome of the diaphragm through symphysis pubis. Patient was not given contrast through intravenous route. Oral contrast was not given. FINDINGS: No pleural effusion is seen bilaterally. There is no evidence of parenchymal disease or pulmonary nodule of the visualized lower lungs. Degenerative changes of the thoracolumbar spine are present. The heart is not enlarged. Liver measures 17 cm. The liver, spleen, adrenal glands and pancreas are unremarkable. There is no evidence of hydronephrosis bilaterally. No evidence of renal stone is seen. Fecal material is seen in the colon. There are normal size retroperitoneal and mesenteric lymph nodes. No ascites is seen. No CT evidence of acute appendicitis is seen. Pelvic sidewalls are symmetric bilaterally. Bladder is poorly distended. Adjacent fat stranding is seen. If there is clinical suspicion for cystitis, urinalysis correlation with helpful. IMPRESSION: 1. Bladder is poorly distended. Adjacent fat stranding is seen. If there is clinical suspicion for cystitis, urinalysis correlation with helpful. CT was performed with one or more following dose reduction techniques: automated exposure control, adjustment of the mA and kv according to patient's size, or use of a iterative reconstruction technique. DICTATED BY: BRIAN MEZA MD DATE: 02/16/25 1404 ELECTRONICALLY SIGNED BY: BRIAN MEZA MD DATE: 02/16/25 1415 ED Course ED Course Orders Procedure Category Date Status Time Cbc With Differential LAB 02/16/25 Complete 11:21 Blood Cult MANJINDER 02/16/25 In Process 11:21 Urinalysis Profile LAB 02/16/25 Complete 11:21 Culture Urine MANJINDER 02/16/25 In Process 11:21 0.9%Nacl 1000ml (Ns PHA 02/16/25 In Process 1000ml) 11:30 Creatine Kinase, Total LAB 02/16/25 Complete 11:21 Troponin I High LAB 02/16/25 Complete Sensitivity 11:21 Lactic Acid LAB 02/16/25 Complete 11:21 Basic Metabolic Panel LAB 02/16/25 Complete 11:21 Ceftriaxone 1g Vial PHA 02/16/25 Complete (Rocephine 1g Inj) 11:21 Acetaminophen 325 Tab PHA 02/16/25 Complete (Tylenol 325mg Tab 11:21 Ct Abdomen/Pelvis W/O CT 02/16/25 Resulted Contrast 11:23 Hcg,Quantitative LAB 02/16/25 Complete 11:23 Morphine 2mg Syg PHA 02/16/25 Complete (Morphine 2mg Syg) 12:00 Ondansetron 4mg Inj PHA 02/16/25 Complete (Zofran 4mg Inj) 12:00 Ketorolac PHA 02/16/25 Complete Tromethamine 15mg/Ml 14:10 Current Medications Medications (Trade) Dose Ordered Sig/Jesenia Route PRN Reason Start Time Stop Time Status Last Admin Dose Admin Acetaminophen (TYLenol 325MG TAB) 650 mg ONCE STAT PO 02/16/25 11:21 02/16/25 11:26 DC 02/16/25 11:44 Ceftriaxone Sodium (ROCEphine 1G INJ) 1 gm ONCE STAT IVPB 02/16/25 11:21 02/16/25 11:26 DC 02/16/25 11:43 Ketorolac Tromethamine (toRADol) 15 mg ONCE STAT IV 02/16/25 14:10 02/16/25 14:12 DC Morphine Sulfate (morPHINE 2MG SYG) 2 mg ONCE STAT IVP 02/16/25 12:00 02/16/25 12:10 DC 02/16/25 12:12 Ondansetron HCl (zoFRAN 4MG INJ) 4 mg ONCE STAT IVP 02/16/25 12:00 02/16/25 12:10 DC 02/16/25 12:12 Sodium Chloride 2,448 ml @ 816 mls/hr ONCE ONCE IV 02/16/25 11:30 02/16/25 14:29 02/16/25 11:43 Vital Signs Date Time Temp Pulse Resp B/P (MAP) Pulse Ox O2 Delivery O2 Flow Rate FiO2 02/16/25 11:48 100.8 115 20 126/89 100 Room Air* 0 21 02/16/25 11:16 100.8 115 20 126/85 100 Room Air Medical Decision Making MDM MDM: 29-year-old female with no past medical history coming in complaining of left flank pain and fever and vomiting for two days. Patient denies any hematuria or dysuria. LMP 01/04/2025.CBC shows no leukocytosis, normocytic anemia hemoglobin of 11 and hematocrit of 35. No thrombocytopenia. Chemistry shows mild hypokalemia at 3.2, replacement given in the emergency room. Normal kidney function. Negative troponin, patient isn't . UA shows evidence of urinary tract infection with positive leuko esterase and white count in her urine. CT scan shows fat stranding around the bladder suspicion for cystitis. Patient received fluids and Rocephin in the emergency room. We will discharge patient on Keflex to continue at home. Discussed with the patient findings, educated patient to return to the hospital if after starting her antibiotics she is still feels the same or worsens. Patient verbalized understanding, answered all questions. Differential diagnosis: Nephrolithiasis, pyelonephritis, urinary tract infection, sepsis Rationale: Tests considered and ordered secondary to shared decision making include: Previous outside records reviewed: Old ER visits. Risk of complication and/or morbidity or mortality of patient management: None Medications-Per medication reconciliation Need for hospitalization: Patient does not meet criteria for hospitalization. Need for emergency major/minor surgery: No There are no social concerns with this patient. Prescription drug management Prescriptions will include symptomatic care Patient's prior external medical records from other ER visits were reviewed by me as indicated. Prior testing and results from previous visits were reviewed. Prior tests were taken into account with medical decision making and resource utilization, independent historian/historians were used to obtain complete medical history. I independently interpreted the test that were performed, results were reviewed by me and considered findings on radiology if ordered. Medical management and examination interpretation discussions were had by me with other qualified healthcare professionals as indicated for the patient's care. DX & DISP Disposition: Discharge Departure Impression: Primary Impression: Urinary tract infection Additional Impression: Cystitis Condition: Stable Additional Instructions: Take the antibiotic as prescribed. Take [id number] Tylenol or Motrin as needed for fever. If after starting your antibiotics you feel worse or unable to keep any food down please return to the hospital. Otherwise follow up with your primary doctor in 1-2 days. Referrals: WALLY CONNOR (PCP) Time of Disposition: 14:31 I have reviewed the case, and I agree with, Diagnosis and Plan LANCE DUNN NP February 16, 2025 14:32
[2025-02-16] MEDS: PoTASSium BIcarbonate/CIT AC 25 MEQ TABLET.EFF PO STA (15:53)
[2025-02-16 15:54] VITALS: BP 124/82; PULSE 84; RESP 20; TEMP 98.9; O2SAT 100
== END 2025-02-16 15:57 | disposition home or self-care (01) ==
LOC: EDH 11:10
DX: N30.90 Cystitis, unspecified without hematuria (principal); R10.2 Pelvic and perineal pain
CPT/HCPCS: 99285; 74176; 96374; 96375; 82550; 84484; 80048; 84702; 85025; 87040 ×2; 87086; 83605; 81001; 36415; J1885; J2270; J7030; J0696; J2405